=== PATIENT | female | born 1980 | race Caucasian/White ===

== ENCOUNTER 2020-01-10 16:26 | Emergency (ER) | payer MEDICAID ==
[2020-01-10] MEDS ORDERED: Bacitracin Oint 1 GM U/D Packet TOP ONE (16:30)
[2020-01-10] MEDS ORDERED: Sodium Chloride 0.9% 10 ML Syringe FLUSH PRN (16:30)
[2020-01-10] MEDS ORDERED: HYDROmorphone 1 MG/ML Syringe IVPUSH ONE (16:30)
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
== END 2020-01-10 17:45 | disposition home or self-care (01) ==
LOC: JP.ED 16:26
DX: S81.812A Laceration without foreign body, left lower leg, initial encounter (principal); Z88.1 Allergy status to other antibiotic agents; V19.9XXA Pedal cyclist (driver) (passenger) injured in unspecified traffic accident, initial encounter
CPT/HCPCS: 12034; 96374; 99283; J1170; 12004